=== PATIENT | female | born 1975 | race Caucasian/White ===

== ENCOUNTER 2016-09-12 16:18 | Emergency (ER) | payer MEDICAID ==
[~2016-09-12] VITALS: Ht 154.9 cm; Wt 52.2 kg
[~2016-09-12 16:18] MED LIST: LEVO125T8 PO
[2016-09-12 16:55] VITALS: BP 120/63; PULSE 73; RESP 18; TEMP 98; O2SAT 98
--- NOTE | 2016-09-12 17:04 | NUR ---
Patient to ER bed 08 to gown for evaluation. Side rails up. Report given to Luis Enrique
[2016-09-12] MEDS ORDERED: ONDANSETRON HCL 4 MG/2 ML VIAL IVP ONE (17:15)
[2016-09-12] MEDS ORDERED: KETOROLAC TROMETHAMINE 30 MG VIAL IVP ONE (17:15)
[2016-09-12] MEDS ORDERED: NACL 0.9% 1,000 ML IV ONE (17:15)
--- NOTE | 2016-09-12 17:15 | NUR ---
CHAU DAVIS at bedside examining patient.
--- NOTE | 2016-09-12 17:20 | NUR ---
PT PRESENTS TO ED C/O HEADACHE AND GENERAL MALAISE WORSENING X 3 WKS. PT H/O HYPERTHYROIDISM. PT SENSITIVITY TO LIGHT AND NAUSEA. PT DENIES CP,SOB OR STIFF NECK.
[2016-09-12] MEDS ORDERED: ONDANSETRON HCL 4 MG/2 ML VIAL ONE (17:22)
[2016-09-12 17:39] LABS: BASOPHILS % (AUTO) 0.7 % (0.0-2.0); EOSINOPHILS # (AUTO) 0.2 K/uL (0.0-0.4); EOSINOPHILS % (AUTO) 3.2 % (0.0-4.0); HEMATOCRIT 43.6 % (36-48); HEMOGLOBIN 14.7 g/dL (12.0-16.0); LYMPHOCYTES # (AUTO) 2.8 K/uL (1.0-5.5); MEAN CORPUSCULAR HEMOGLOBIN 31 pg (27-31); MEAN CORPUSCULAR HGB CONC 34 % (32-36); MEAN CORPUSCULAR VOLUME 92 fL (79.0-98.0); MONOCYTES # (AUTO) 0.3 K/uL (0.0-1.0); MONOCYTES % (AUTO) 5.2 % (1.7-9.3); NEUTROPHILS # (AUTO) 2.8 K/uL (1.8-7.7); NEUTROPHILS % (AUTO) 45.9 % (40.0-70.0); PLATELET COUNT (AUTO) 329 K/uL (130-430); RED BLOOD CELL COUNT(AUTO) 4.74 MIL/uL (4.2-6.2); RED CELL DISTRIBUTION WIDTH 13.1 % (9.0-15.0); WHITE BLOOD COUNT (AUTO) 6.1 K/uL (4.8-10.8)
[2016-09-12 17:45] LABS: CALCIUM 8.6 mg/dL (8.4-11.0); CREATININE 0.82 mg/dL (0.55-1.30); POTASSIUM 3.8 mmol/L (3.5-5.1)
[2016-09-12 18:00] LABS: ALBUMIN 3.8 g/dL (3.4-4.8); TOTAL BILIRUBIN 0.3 mg/dL (0.0-1.0); TOTAL PROTEIN, SERUM 7.4 g/dL (6.4-8.3)
--- NOTE | 2016-09-12 18:00 | NUR ---
PT TOLERATED MEDICATION.WILL CONTUE TO MONITOR.
[2016-09-12 18:21] LABS: BILIRUBIN,URINE NEGATIVE (NEGATIVE); BLOOD, URINE 2+ (NEGATIVE); CLARITY/URINE CLEAR (CLEAR); COLOR,URINE YELLOW (YELLOW); GLUCOSE,URINE NEGATIVE (NEGATIVE); KETONES,URINE NEGATIVE (NEGATIVE); LEUKOCYTE ESTERASE ,URINE NEGATIVE (NEGATIVE); NITRITE, URINE NEGATIVE (NEGATIVE); PH,URINE 6.5 (5.0-8.0); PROTEIN URINE NEGATIVE (NEGATIVE); UROBILINOGEN,URINE 0.2 (0.2-1.0)
[2016-09-12 18:26] LABS: RBC,URINE 0-3 /HPF (0-3)
[2016-09-12 18:27] LABS: BACTERIA,URINE RARE /HPF (None Seen); MUCUS,URINE None Seen /LPF (None Seen); WBC,URINE 0-3 /HPF (0-3)
[2016-09-12 18:34] LABS: THYROID STIMULATING HORMONE 213.45 uIu/mL (0.34-4.82)
--- NOTE | 2016-09-12 18:40 | NUR ---
PT REPORTS PAIN RETURNING AFTER MEDCIATION.PT TO MEDICATD PRIOR TO DISCHARGE.PT'S FAMILY TO HOSPITAL FOR PT TRANSPORT.
[2016-09-12] MEDS ORDERED: MORPHINE 4 MG/ML INJ. SYRINGE IVP ONE (19:00)
--- NOTE | 2016-09-12 19:05 | NUR ---
FAMILY AT BEDSIDE.PT MEDICATED TOLERATED WELL.
[2016-09-12 19:16] LABS: HCG,QUAL RESULT NEGATIVE (NEGATIVE)
--- NOTE | 2016-09-12 19:37 | NUR ---
Patient given written and verbal discharge instructions and verbalizes understanding. ER MD discussed with patient the results and treatment provided. Patient in stable condition. ID arm band removed. IV catheter removed intact and dressing applied, no active bleeding. Rx of ZOFRAN, MOTRIN given. Patient educated on pain management and to follow up with PMD. Pain Scale 0/10. Opportunity for questions provided and answered.
[2016-09-12 19:39] VITALS: BP 118/61; PULSE 70; RESP 18; TEMP 98; O2SAT 98
== END 2016-09-12 19:39 | disposition home or self-care (01) ==
LOC: SED 16:18
DX: R51 Headache (principal); R11.2 Nausea with vomiting, unspecified; E03.9 Hypothyroidism, unspecified; Z91.14 Patient's other noncompliance with medication regimen
CPT/HCPCS: 36415; 80053; 81000; 81025; 84443; 84703; 85025; 96361; 96374; 96375; 99284; J1885; J2270; J2405; J7030